=== PATIENT | male | born 1955 | race Two or more races ===

== ENCOUNTER 2020-09-25 22:01 | Emergency (ER) | payer OTHER ==
[~2020-09-25] VITALS: Ht 177.8 cm; Wt 83.5 kg
[2020-09-25] MEDS ORDERED: SYNTHROID150 MCG (22:15)
[2020-09-25] MEDS ORDERED: NAPROXEN500 MG PO (23:27)
[2020-09-25] MEDS ORDERED: PEPCID AC20 MG PO (23:27)
== END 2020-09-26 00:05 | disposition home or self-care (01) ==
LOC: ER 22:01
DX: L40.8 Other psoriasis (principal); Z03.818 Encounter for observation for suspected exposure to other biological agents ruled out